=== PATIENT | male | born 1980 | race Two or more races ===

== ENCOUNTER 2025-03-03 10:03 | Outpatient (AMB) | payer OTHER, SELFPAY ==
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
[2025-03-03 10:25] VITALS: BP 118/80; PULSE 75; RESP 18; TEMP 36.3; O2SAT 97; BMI 42.9
== END 2025-03-03 11:07 | disposition home or self-care (01) ==
LOC: HO.HMCH 10:04
PROVIDERS: PCP Internal Medicine
DX: E27.9 Disorder of adrenal gland, unspecified (principal); G47.30 Sleep apnea, unspecified; E66.01 Morbid (severe) obesity due to excess calories; Z68.41 Body mass index [BMI] 40.0-44.9, adult; R12 Heartburn; R07.2 Precordial pain

== ENCOUNTER → 2025-03-03 10:03 | Outpatient (BNVA) | payer OTHER, SELFPAY | PROVIDERS: PCP Internal Medicine | DX: R07.2 Precordial pain (principal); G47.30 Sleep apnea, unspecified; R12 Heartburn; E66.9 Obesity, unspecified; E27.9 Disorder of adrenal gland, unspecified; E66.01 Morbid (severe) obesity due to excess calories; Z87.442 Personal history of urinary calculi; Z68.41 Body mass index [BMI] 40.0-44.9, adult | CPT/HCPCS: 99202 ==

== ENCOUNTER 2025-04-21 08:39 | Outpatient (REF) | payer OTHER, SELFPAY ==
[2025-04-21 08:55] LABS: MANUAL DIFF FLAG NO
--- OUTSIDE RECORDS SUMMARY | 2025-04-21 08:55 | XMS_ITS ---
Author Name [facility] Organization [facility] Care Team Organization Name Specialty Phone Email Start Date End Da te [facility] Primary Care 03/27/2022 4
[2025-04-21 09:19] LABS: Hematocrit 43.3 % (42.0-52.0); Hemoglobin 15.2 g/dl (14.0-18.0); Imm Gran Abs Auto 0.02 X10*3/uL (0.00-0.03); Imm Gran Pct Auto 0.4 % (0.0-0.4); Lymphocytes Absolute Auto 2.5 X10*3/uL (1.2-4.9); Mean Corpuscular HGB Conc 35.1 g/dl (31.0-36.0); Mean Corpuscular Hemoglobin 30.6 pg (27.0-33.0); Mean Corpuscular Volume 87.3 fL (80.0-98.0); NRBC Abs Auto 0.000 X10*3/uL (0.0-0.012); NRBC Pct Auto 0.0 /100WBC (0.0-0.2); Platelet Count 296 X10*3/uL (160-400); Red Blood Count 4.96 X10*6/uL (4.60-5.80); White Blood Count 5.7 X10*3/uL (4.8-10.8)
[2025-04-21 09:35] LABS: Appearance Urine Clear; Glucose Urine UA Negative (Negative); PH 7.0 (5.0-9.0); Specific Gravity - Urine >= 1.030 (1.005-1.025); UMIC TRIGGER UACC YES
[2025-04-21 09:43] LABS: Alanine Aminotransferase 41 U/L (0-40); Albumin Level 4.7 g/dL (3.5-5.0); Alkaline Phosphatase 76 U/L (39-117); Anion Gap 14 (12-20); Aspartate Amino Transferase 31 U/L (5-37); Blood Urea Nitrogen 12 mg/dL (9-16); Calcium 9.3 mg/dL (8.4-10.2); Carbon Dioxide 24 mmol/L (22-29); Chloride 105 mmol/L (96-108); Cholesterol 200 mg/dL (<200); Estimated Glomerular Filt Rate > 60; HDL Cholesterol 44 mg/dL (>40); Potassium 3.8 mmol/L (3.3-5.1); Sodium 139 mmol/L (135-145); Total Protein 7.6 g/dL (6.5-8.0); Triglycerides 76 mg/dL (<150)
== END 2025-04-21 08:40 | disposition home or self-care (01) ==
LOC: HO.LAB 08:39
DX: Z00.00 Encounter for general adult medical examination without abnormal findings (principal); Z23 Encounter for immunization; E27.9 Disorder of adrenal gland, unspecified; G47.30 Sleep apnea, unspecified; E66.01 Morbid (severe) obesity due to excess calories; Z68.41 Body mass index [BMI] 40.0-44.9, adult; R12 Heartburn; R07.2 Precordial pain; E78.5 Hyperlipidemia, unspecified; E55.9 Vitamin D deficiency, unspecified; R73.01 Impaired fasting glucose; R74.01 Elevation of levels of liver transaminase levels; R31.21 Asymptomatic microscopic hematuria; R03.0 Elevated blood-pressure reading, without diagnosis of hypertension
CPT/HCPCS: 36415; 80053; 80061; 81001; 82306; 84443; 85025; 90471; 90714; 99396

== ENCOUNTER 2025-04-21 09:33 | Outpatient (AMB) | payer OTHER, SELFPAY ==
[2025-04-21 09:38] VITALS: BP 136/82; PULSE 78; RESP 18; O2SAT 97; BMI 41.8
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
== END 2025-04-21 10:33 | disposition home or self-care (01) ==
LOC: HO.HMCH 09:34
DX: Z00.00 Encounter for general adult medical examination without abnormal findings (principal); E27.9 Disorder of adrenal gland, unspecified; E66.01 Morbid (severe) obesity due to excess calories; Z68.41 Body mass index [BMI] 40.0-44.9, adult; G47.30 Sleep apnea, unspecified; R12 Heartburn; R07.2 Precordial pain; E78.5 Hyperlipidemia, unspecified; E55.9 Vitamin D deficiency, unspecified; R73.01 Impaired fasting glucose; R74.01 Elevation of levels of liver transaminase levels; R31.21 Asymptomatic microscopic hematuria; R03.0 Elevated blood-pressure reading, without diagnosis of hypertension; Z23 Encounter for immunization

== ENCOUNTER → 2025-04-28 10:56 | Outpatient (REF) | payer OTHER, SELFPAY ==
--- NOTE | 2025-04-28 11:00 | ECG_ITS ---
Test Reason : Z00.00 Blood Pressure : */* mmHG Vent. Rate : 68 BPM Atrial Rate : 68 BPM P-R Int : 176 ms QRS Dur : 88 ms QT Int : 368 ms P-R-T Axes : 43 36 15 degrees QTcB Int : 391 ms Normal sinus rhythm Normal ECG No previous ECGs available Referred By: Alejo Good Electronically Signed By: BOUCHRA ALVAREZ MD
[2025-04-28 12:10] LABS: Appearance Urine Clear; Glucose Urine UA Negative (Negative); PH 8.0 (5.0-9.0); Specific Gravity - Urine 1.020 (1.005-1.025)
== END ==
LOC: HO.CARD 10:56
DX: Z00.00 Encounter for general adult medical examination without abnormal findings (principal); R31.9 Hematuria, unspecified
CPT/HCPCS: 81003; 88112; 93005

== ENCOUNTER → 2025-04-28 11:00 | Outpatient (BNV) | payer OTHER, SELFPAY | PROVIDERS: Visit Provider Internal Medicine Cardiovascular Disease | DX: Z00.00 Encounter for general adult medical examination without abnormal findings (principal) | CPT/HCPCS: 93010 ==